=== PATIENT | male | born 1965 | race Caucasian/White ===

== ENCOUNTER → 2024-01-19 | Day surgery (SDC) | payer BC ==
[~2024-01-19] MED LIST: ASPIRIN81 MG PO; B-121000 MC2; CENTRUM ADULT80 MCG; DEXAMETHASONE SOD PHOS INJ 4 MG/ML SDV ONE; FARXIGA10 MG PO; FENTANYL CITRATE/PF 100MCG/2 ML INJ ONE; LEVOTHYROXINE50 MCG PO; LIDOCAINE HCL 2% LOCAL INJ 5 ML SDV VIAL INJ ONE; LOSARTAN POTASS25 MG PO; METOPROLOL SUCC50 MG PO; MIDAZOLAM HCL 2 MG/2 ML VIAL ONE; NAPROSYN500 MG PO; ONDANSETRON HCL INJ 2MG/ML 2ML 2 MG/ML VIAL ONE; OZEMPIC0.25 MG/02 INJ; PANTOPRAZOLE SO40 MG PO; PROPOFOL IV EMULSION 10 MG/ML 20 ML VIAL ONE; ROSUVASTATIN CAL5 MG PO
[2024-01-19] MEDS: LACTATED RINGER'S 1,000 ML ONE (06:02)
[2024-01-19 08:45] VITALS: BP 143/68; PULSE 60; RESP 16; O2SAT 97
[2024-01-19] MEDS: ACETAMINOPHEN/CODEINE 300MG - 30MG TAB ONE (09:00)
== END | disposition home or self-care (01) ==
LOC: OR 05:21
PROVIDERS: ATTEND Specialist
DX: G56.01 Carpal tunnel syndrome, right upper limb (principal); M06.9 Rheumatoid arthritis, unspecified; M19.90 Unspecified osteoarthritis, unspecified site; E11.9 Type 2 diabetes mellitus without complications; I10 Essential (primary) hypertension; E78.5 Hyperlipidemia, unspecified; E03.9 Hypothyroidism, unspecified; K21.9 Gastro-esophageal reflux disease without esophagitis; Z01.810 Encounter for preprocedural cardiovascular examination; Z79.82 Long term (current) use of aspirin; Z79.1 Long term (current) use of non-steroidal anti-inflammatories (NSAID); Z79.85 Long-term (current) use of injectable non-insulin antidiabetic drugs; Z79.899 Other long term (current) drug therapy; Z68.37 Body mass index [BMI] 37.0-37.9, adult; Z87.891 Personal history of nicotine dependence
CPT/HCPCS: 29848; 36415; 82948; 93005; J0690; J2003; J2250; J2405; J2704; J3010; J7121; J1100